=== PATIENT | male | born 1945 | race Caucasian/White ===

== ENCOUNTER 2016-09-30 08:49 | Emergency (ER) | payer OTHER, MEDICARE ==
[~2016-09-30] VITALS: Ht 182.9 cm; Wt 86.2 kg
[2016-09-30] MEDS ORDERED: IV NORMAL SALINE 1000ML BAG 1,000 ML IV ONE (09:00)
[2016-09-30] MEDS ORDERED: fentaNYL PF VIAL 100 MCG/2 ML VIAL IV ONE (09:00)
[2016-09-30 09:08] LABS: POTASSIUM ISTAT 4.2 mmol/L (3.5-5.0)
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
[2016-09-30 09:21] LABS: BASO # 0.1 x10^3/uL (0.0-0.2); BASO % 1 % (0-3); EOS % 1 % (0-3); HEMATOCRIT 39.7 % (39.0-53.0); HEMOGLOBIN 13.5 g/dL (13.0-17.5); LYMPH # 1.5 x10^3/uL (1.0-4.8); LYMPH % 30 % (24-48); MEAN CORPUSCULAR HEMOGLOBIN 31 pg (25-35); MEAN CORPUSCULAR HGB CONC 34 g/dL (31-37); MEAN CORPUSCULAR VOLUME 91 fL (79-100); MONO % 7 % (0-9); NEUT % 61 % (31-73); PLATELET COUNT 198 x10^3/uL (140-400); RED BLOOD COUNT 4.37 x10^6/uL (4.30-5.70); RED CELL DISTRIBUTION WIDTH 13.9 % (11.5-14.5); WHITE BLOOD COUNT 5.1 x10^3/uL (4.0-11.0)
[2016-09-30] MEDS ORDERED: CONTRAST GIVEN MC PRN (09:30)
[2016-09-30] MEDS ORDERED: IOHEXOL 300 MG/ML 75 ML VIAL IV ONE (09:30)
[2016-09-30 09:34] LABS: ALBUMIN 3.5 g/dL (3.4-5.0); DIRECT BILIRUBIN 0.1 mg/dL (0.0-0.2); TOTAL BILIRUBIN 0.5 mg/dL (0.2-1.0); TOTAL PROTEIN 7.3 g/dL (6.4-8.2)
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
--- NOTE | 2016-09-30 10:51 | EKG ---
[facility] [address] [place] [id number] Test Date: 2016-09-30 Test Time: 09:10:30 Pat Name: DEBORAH SIMEON Department: Room: Gender: M [employer]ter: : 1945 Requested By: PARK HERRING Order Number: [id number] Reading MD: Olayinka Oviedo Measurements Intervals [place] Rate: 70 P: 36 OR: 204 QRS: -14 QRSD: 78 T: 11 QT: 378 QTc: 411 Interpretive Statements SINUS RHYTHM Electronically Signed On 10-05-2016 13:59:46 CDT by Olayinka Oviedo
[2016-09-30] MEDS ORDERED: KETOROLAC TROMETHAMINE 30 MG/ML INJ. IV ONE (11:15)
[2016-09-30] MEDS ORDERED: HYDROcodone/APAP 5/325MG 1 TAB TABLET PO ONE (11:30)
[2016-09-30] MEDS ORDERED: IBUP-1060 PO (11:35)
[2016-09-30] MEDS ORDERED: HYDR-971 PO (11:35)
[2016-09-30] MEDS ORDERED: CYCL5TAB PO (11:35)
[2016-09-30 11:48] VITALS: BP 184/82
== END 2016-09-30 11:45 | disposition home or self-care (01) ==
LOC: ER 08:49
DX: S16.1XXA Strain of muscle, fascia and tendon at neck level, initial encounter (principal); S29.011A Strain of muscle and tendon of front wall of thorax, initial encounter; S29.012A Strain of muscle and tendon of back wall of thorax, initial encounter; S39.012A Strain of muscle, fascia and tendon of lower back, initial encounter; R51 Headache; M25.559 Pain in unspecified hip; I10 Essential (primary) hypertension; G25.81 Restless legs syndrome; M10.9 Gout, unspecified; V53.5XXA Driver of pick-up truck or van injured in collision with car, pick-up truck or van in traffic accident, initial encounter; Y93.I9 Activity, other involving external motion; Y92.410 Unspecified street and highway as the place of occurrence of the external cause; Y99.8 Other external cause status
CPT/HCPCS: 36415; 70450; 70486; 71010; 71260; 72125; 74177; 80047; 80076; 80320; 85027; 86850; 86900; 86901; 93005; 96361; 96374; 96375; 99285; J1885; J3010; J7030; Q9967; G0480

== ENCOUNTER → 2017-02-22 | Outpatient (CLI) | payer MEDICARE, OTHER ==
[~2017-02-22] MED LIST: CYCL5TAB PO; HYDR-971 PO; IBUP-1060 PO
--- NOTE | 2017-02-22 10:58 | KCIC ---
MRI Cervical Spine Without Contrast History: Neck pain, right radiculopathy for 2 months Technique: Multiplanar, multi sequential noncontrast MR imaging was performed of the cervical spine. Comparison: None Findings: There is motion degradation. Cervical vertebral body stature is adequate. There is grade 1 anterior spondylolisthesis at C5-C6 and C6-7 C7-T1 and to lesser degree at C4-5 and C3-4. There is hemangioma of the C5 vertebral body. There is moderate to severe degenerative disc disease greater anteriorly at C7-T1, minimally at C4-5 and C5-6. There is amorphous edema of the posterior paraspinous soft tissues centered about the C3-C5 levels. There is no significant abnormality of the cervical medullary junction. Cervical cord caliber is within normal limits, no expansile signal abnormality, cannot accurately evaluate for subtle signal change due to motion artifact. There is mild cervical levoscoliosis. C2-C3: Neural foramina and spinal canal are adequate. C3-C4: There is moderate to severe right and moderate left facet hypertrophic change. Central canal is narrowed to 8 to 9 mm. There is probable mild narrowing of the right neural foramen, left neural foramen not significantly narrowed. C4-C5: There is buckling of the ligamentum flavum . There is severe right facet degenerative change, fluid in the right facet articulation. There is moderate left facet hypertrophic change, associated synovial cyst. Central canal is narrowed to approximately 8 to 9 mm. Left neural foramen is adequate, fairly severe narrowing of the right neural foramen. C5-C6: There is severe right facet hypertrophic change, mild to moderate left facet degenerative change. Central canal is minimally narrowed to 9 mm. Neural foramina are adequate. C6-C7: There is fairly severe right and moderate to severe left facet degenerative change. Spinal canal and neural foramina are adequate. C7-T1: There is severe left degenerative change. Central canal is minimally narrowed to about 9 mm. Neural foramina are not significantly narrowed. Impression: 1. There is mild spinal stenosis C3-4, C4-5, C5-C6, and C7-T1. There is multilevel grade 1 anterior spondylolisthesis, multilevel facet degenerative change. 2. There is moderate to severe degenerative disc disease C7-T1, minimally at C4-5 and C5-6. 3. There is severe narrowing of the right C4-5 neural foramen and mild to moderate narrowing on the right at C3-4 primarily due to facet degenerative change. 4. There is mild cervical levoscoliosis. 5. There is nonspecific amorphous posterior paraspinous edema about mid cervical levels which may be due to soft injury or strain. Electronically signed by: Russ Nguyễn MD (02/22/2017 10:55 AM) [id number]
--- NOTE | 2017-02-22 11:07 | KCIC ---
MRI right shoulder without contrast dated 02/22/2017 9:30 AM Indication: Shoulder pain , decreased range of motion for 2 months , history of prior rotator cuff surgery.. Comparison: No comparison is available. Technique: Routine multiplanar multisequence imaging performed. No contrast administered. Findings: Evidence of prior rotator cuff repair with suture anchors at the anterior humeral head. There is intermediate T2 signal and thinning of the repaired cuff. No recurrent full-thickness tear or cuff retraction. Focal thinning of the cuff substance of the central supraspinatus footplate estimated at 70-80 percent with thin fibers that remain attached. Infraspinatus and subscapularis are intact. Mild hypertrophic change of the acromioclavicular joint. There is some mild undersurface spurring of the acromium. Small amount of subacromial bursal fluid. Acromium is type IV morphology. Long head biceps tendon is not identified proximally. Extra articular portion is not identified within the bicipital groove. Mild to moderate hypertrophic change of the glenohumeral joint. Thinning and surface irregularity of the glenoid articular cartilage. Near full-thickness cartilage loss of the anterior inferior glenoid. No joint effusion or loose body. There is mild blunting of the glenoid labrum with no discrete labral tear. No glenohumeral joint effusion or loose body. Suprascapular and spinoglenoid notches are clear. No significant muscle edema or muscle atrophy. IMPRESSION: 1. Status post rotator cuff repair. There is tendinosis and focal thinning of the cuff near the central supraspinatus footplate with no definite recurrent full-thickness tear or cuff retraction. 2. Nonvisualization of the long head biceps tendon. This could be related to prior biceps tenodesis and/or chronic tear. 3. Mild AC joint arthropathy with undersurface spurring of the acromium. There is a small amount of subacromial/subdeltoid bursal fluid. 4. Moderate degenerative arthrosis and chondral malacia the glenohumeral joint. There is suspected full-thickness cartilage loss of the anterior glenoid. 5. Blunted morphology of the anterior and posterior labrum, likely related to chronic degenerative labral tearing. No discrete labral tear or para labral cyst. Electronically signed by: Claudio Garcia MD (02/22/2017 11:04 AM) [id number]
== END | disposition home or self-care (01) ==
LOC: KCIC MRI 08:54
PROVIDERS: ATTEND Internal Medicine
DX: M48.02 Spinal stenosis, cervical region (principal); M50.121 Cervical disc disorder at C4-C5 level with radiculopathy; M50.122 Cervical disc disorder at C5-C6 level with radiculopathy; M50.123 Cervical disc disorder at C6-C7 level with radiculopathy; M43.12 Spondylolisthesis, cervical region; R60.9 Edema, unspecified
CPT/HCPCS: 72141; 73221